=== PATIENT | male | born 1945 | race Caucasian/White ===

== ENCOUNTER → 2018-05-16 | Outpatient (CLI) | payer OTHER | LOC: M.RAD 10:40 → M.ULTRA 10:45 | DX: R92.8 Other abnormal and inconclusive findings on diagnostic imaging of breast (principal) ==

== ENCOUNTER 2019-04-06 20:26 | Emergency (ER) | payer OTHER ==
[~2019-04-06] VITALS: Ht 175.3 cm; Wt 122.0 kg
[2019-04-06 21:03] LABS: ABSOLUTE BASOPHILS 0.1 thou/uL (0.0-0.2); ABSOLUTE EOSINOPHILS 0.4 thou/uL (0.0-0.7); ABSOLUTE LYMPHOCYTES 1.9 thou/uL (0.8-5.3); ABSOLUTE MONOCYTES 0.7 thou/uL (0.0-1.2); ABSOLUTE NEUTROPHILS 7.6 thou/uL (1.6-8.1); BASOPHILS 1.3 %; EOSINOPHILS 3.8 %; HEMATOCRIT 40.7 % (42.0-52.0); LYMPHOCYTES 17.4 %; MCHC 34.4 g/dL (28.0-37.0); MCV 90.2 fL (80.0-100.0); MONOCYTES 6.6 %; MPV 8.6 fl. (7.2-11.1); NUCLEATED RBCS 0 /100WBC; PLATELET COUNT* 197 thou/uL (150-400); POLYS 70.9 %; RBC 4.52 mil/uL (4.50-6.00); RDW-CV 13.2 % (10.5-14.5); WBC 10.7 thou/uL (4.0-11.0)
[2019-04-06 21:11] LABS: ANION GAP 10 mmol/L (7-16); BUN 32 mg/dL (7-18); CALCIUM 9.9 mg/dL (8.5-10.1); CHLORIDE 103 mmol/L (98-107); CO2 28 mmol/L (21-32); GLUCOSE 132 mg/dL (70-99); POTASSIUM 3.6 mmol/L (3.5-5.1); SODIUM 141 mmol/L (136-145)
[2019-04-06 21:13] LABS: PROTIME 10.7 Seconds (9.20-11.50)
[2019-04-06 21:22] LABS: ALBUMIN 3.7 g/dL (3.4-5.0); ALKALINE PHOSPHATASE 105 U/L (46-116); LIPASE 376 U/L (73-393); NT-PRO BRAIN NAT PEPTIDE 182 pg/mL (<300); SGOT 28 U/L (15-37); SGPT 33 U/L (30-65); TOTAL BILIRUBIN 0.4 mg/dL (<0.1-1.0); TOTAL PROTEIN 7.5 g/dL (6.4-8.2); TROPONIN-I LEVEL <0.06 ng/mL (<0.06)
[2019-04-06 22:01] LABS: URINE BILIRUBIN NEGATIVE (Negative); URINE BLOOD NEGATIVE (Negative); URINE CLARITY CLEAR; URINE COLOR YELLOW; URINE GLUCOSE-RANDOM NEGATIVE (Negative); URINE KETONES NEGATIVE (Negative); URINE LEUKOCYTES-REFLEX NEGATIVE (Negative); URINE NITRITE-REFLEX NEGATIVE (Negative); URINE PROTEIN 1+ (Negative); URINE SPECIFIC GRAVITY 1.025 (1.005-1.030); URINE UROBILINOGEN 0.2 E.U./dl (0.2-1.0)
[2019-04-06] MEDS ORDERED: PROVENTIL HFA6.7 G1 INH (22:16)
[2019-04-06] MEDS ORDERED: ASPIR 8181 MG PO (22:17)
[2019-04-06] MEDS ORDERED: SKIN TREATMENT225 GM TOP (22:17)
[2019-04-06] MEDS ORDERED: ARICEPT 5 MG TAB5 MG PO (22:18)
[2019-04-06] MEDS ORDERED: B12INJ IM (22:18)
[2019-04-06] MEDS ORDERED: PULMICORT0.25 MG/3 INH (22:18)
[2019-04-06] MEDS ORDERED: IRON325 PO (22:19)
[2019-04-06] MEDS ORDERED: FINASTERIDE5 MG PO (22:19)
[2019-04-06] MEDS ORDERED: FLUOCINOLONE AC15 G2 TOP (22:19)
[2019-04-06] MEDS ORDERED: NEURONTIN 300M300 M2 PO (22:20)
[2019-04-06] MEDS ORDERED: FOLIC ACID1 MG PO (22:20)
[2019-04-06] MEDS ORDERED: GLUCOSAMINE H1500 MG PO (22:20)
[2019-04-06] MEDS ORDERED: LISINOPRIL20 MG PO (22:21)
[2019-04-06] MEDS ORDERED: ISOPTO TEARS15 ML OPHTHALMIC (22:21)
[2019-04-06] MEDS ORDERED: LORATADINE10 M1 PO (22:21)
[2019-04-06] MEDS ORDERED: METFORMIN HCL500 MG PO (22:22)
[2019-04-06] MEDS ORDERED: ANTIVERT25 MG PO (22:22)
[2019-04-06] MEDS ORDERED: LOPRESSOR25 PO (22:23)
[2019-04-06] MEDS ORDERED: ROSUVASTATIN CA20 MG PO (22:24)
[2019-04-06] MEDS ORDERED: OMEPRAZOLE 20 M20 M1 PO (22:24)
[2019-04-06] MEDS ORDERED: TADALAFIL5 M1 PO (22:24)
[2019-04-06] MEDS ORDERED: ONGLYZA2.5 MG PO (22:25)
[2019-04-06] MEDS ORDERED: TORSEMIDE10 MG PO (22:25)
[2019-04-06] MEDS ORDERED: FLOMAX0.4 MG PO (22:25)
[2019-04-06] MEDS ORDERED: TRAMADOL HCL50 MG PO (22:26)
[2019-04-06] MEDS ORDERED: TYLENOL325 M1 PO (22:26)
[2019-04-06] MEDS ORDERED: NOVOLOG FL100 UNIT/M SUBQ (22:27)
[2019-04-06] MEDS ORDERED: LEVEMIR SUBQ (22:27)
[2019-04-06] MEDS ORDERED: SYMLINPEN2700 MCG/2 SUBQ (22:28)
[2019-04-07] MEDS ORDERED: ZOFRAN ODT4 MG PO (01:29)
[2019-04-07 01:30] VITALS: BP 125/64
--- NOTE | 2019-04-07 10:40 | EKG ---
[place] [address] ELECTROCARDIOGRAM REPORT Name: CHIDIJESSICA A Room: [facility]#: [id number] Admission: 04/06/19 Attend Phys: Discharge: 04/07/19 Date of : 43 Report #: [id number] THIS REPORT FOR: //name// [facility] ED Test Date: 2019-04-06 Test Time: 21:00:20 Pat Name: JESSICA MURILLO Department: Room: Gender: M Glass Handler: [place] : 1945 Requested By: Bernie More Order Number: [id number] MD: David Pederson Measurements Intervals [place] Rate: 75 P: 42 VT: 185 QRS: -20 QRSD: 97 T: 27 QT: 392 QTc: 438 Interpretive Statements Sinus rhythm Inferior infarct, old No previous ECG available for comparison Electronically Signed On 04-07-2019 10:40:20 CDT by David Pederson [email or web address] <ELECTRONICALLY SIGNED> By: David Pederson MD, [facility] 04/07/19 1040 [address] [facility] David Pederson MD, FACC /EPI
== END 2019-04-07 01:30 | disposition home or self-care (01) ==
LOC: M.ERS 20:26
PROVIDERS: Emergency Medicine
DX: I95.9 Hypotension, unspecified (principal); R55 Syncope and collapse; E11.9 Type 2 diabetes mellitus without complications; Z79.4 Long term (current) use of insulin

== ENCOUNTER 2020-09-02 14:01 | Emergency (ER) | payer OTHER ==
[~2020-09-02] VITALS: Ht 177.8 cm; Wt 117.9 kg
[~2020-09-02 14:01] MED LIST: ANTIVERT25 MG PO; ARICEPT 5 MG TAB5 MG PO; ASPIR 8181 MG PO; B12INJ IM; FINASTERIDE5 MG PO; FLOMAX0.4 MG PO; FLUOCINOLONE AC15 G2 TOP; FOLIC ACID1 MG PO; GLUCOSAMINE H1500 MG PO; IRON325 PO; ISOPTO TEARS15 ML OPHTHALMIC; LEVEMIR SUBQ; LISINOPRIL20 MG PO; LOPRESSOR25 PO; LORATADINE10 M1 PO; METFORMIN HCL500 MG PO; NEURONTIN 300M300 M2 PO; NOVOLOG FL100 UNIT/M SUBQ; OMEPRAZOLE 20 M20 M1 PO; ONGLYZA2.5 MG PO; PROVENTIL HFA6.7 G1 INH; PULMICORT0.25 MG/3 INH; ROSUVASTATIN CA20 MG PO; SKIN TREATMENT225 GM TOP; SYMLINPEN2700 MCG/2 SUBQ; TADALAFIL5 M1 PO; TORSEMIDE10 MG PO; TRAMADOL HCL50 MG PO; TYLENOL325 M1 PO; ZOFRAN ODT4 MG PO
[2020-09-02 15:34] VITALS: BP 176/79
== END 2020-09-02 15:35 | disposition home or self-care (01) ==
LOC: M.ERS 14:01
DX: M25.461 Effusion, right knee (principal); R60.0 Localized edema; E11.9 Type 2 diabetes mellitus without complications; E78.00 Pure hypercholesterolemia, unspecified; J45.909 Unspecified asthma, uncomplicated; Z79.4 Long term (current) use of insulin; Z96.652 Presence of left artificial knee joint